=== PATIENT | female | born 1995 | race Caucasian/White ===

== ENCOUNTER 2023-08-31 01:40 | Inpatient (IN) | payer OTHER ==
[2023-08-31 02:54] LABS: PH,URINE 5.5 (5.0-8.0); URINE APPEARANCE CLEAR; URINE BILIRUBIN NEGATIVE (NEGATIVE); URINE COLOR YELLOW; URINE GLUCOSE (UA) NEGATIVE (NEGATIVE); URINE KETONE NEGATIVE (NEGATIVE); URINE LEUK ESTERASE NEGATIVE (NEGATIVE); URINE NITRITE NEGATIVE (NEGATIVE); URINE PROTEIN TRACE (NEGATIVE); URINE UROBILINOGEN 0.2 mg/dL (0.2-1.0)
[2023-08-31 03:08] LABS: HCG,QUALITATIVE URINE Negative
[2023-08-31] MEDS: SODIUM CHLORIDE 0.9% 500 ML INFUS.BAG IV ONE (03:49)
[2023-08-31] MEDS ORDERED: KETOROLAC TROMETHAMINE 15 MG/ML VIAL ONE (03:59)
[2023-08-31] MEDS ORDERED: FAMOTIDINE 20 MG/50 ML IVPB 20 MG/50 ML MG IVPB ONE (03:59)
[2023-08-31] MEDS ORDERED: MAG HYDROX/AL HYDROX/SIMETH 30 ML UNIT-DOSE CUP ONE (03:59)
[2023-08-31 04:01] LABS: BASO % 0.6 % (0-2.0); EOS % 6.6 % (0-4.5); HEMATOCRIT 29.9 % (32.4-45.2); HEMOGLOBIN 9.6 GM/dL (10.7-15.3); LYMPH % 45.9 % (8-40); MCH 25.5 pg (25.7-33.7); MEAN CELL VOLUME 79.8 fl (80-96); MEAN PLT VOLUME 7.5 fl (7.5-11.1); MONO % 6.6 % (3.8-10.2); NEUT % 40.3 % (42.8-82.8); PLATELET COUNT 351 10^3/uL (134-434); RBC 3.75 M/mm3 (3.60-5.2); RDW 14.9 % (11.6-15.6); WHITE BLOOD COUNT 6.7 K/mm3 (4.0-10.0)
[2023-08-31] MEDS: KETOROLAC TROMETHAMINE 15 MG/ML VIAL IVPUSH ONE (04:12)
[2023-08-31] MEDS: FAMOTIDINE 20 MG/50 ML IVPB 20 MG/50 ML MG IVPB ONE (04:13)
[2023-08-31] MEDS: MAG HYDROX/AL HYDROX/SIMETH 30 ML UNIT-DOSE CUP PO ONE (04:13)
[2023-08-31 04:14] LABS: POTASSIUM 4.3 mmol/L (3.5-5.1)
[2023-08-31 04:16] LABS: CALCIUM 9.1 mg/dL (8.5-10.1)
[2023-08-31 04:17] LABS: ALBUMIN 3.2 g/dl (3.4-5.0); BLOOD UREA NITROGEN 19.4 mg/dL (7-18); MAGNESIUM 1.8 mg/dL (1.8-2.4)
[2023-08-31 04:20] LABS: ACTIVATED PTT 39.2 SECONDS (25.2-36.5); CREATININE 0.8 mg/dL (0.55-1.3); INR 1.01 (0.83-1.09); PHOSPHOROUS 4.9 mg/dL (2.5-4.9); PROTHROMBIN TIME (PATIENT) 11.4 SEC (9.7-13.0)
[2023-08-31 04:21] LABS: BILIRUBIN,TOTAL 0.1 mg/dL (0.2-1)
[2023-08-31] MEDS ORDERED: MIDAZOLAM HCL 2 MG/2 ML SINGLE DOSE VIAL ONE (09:49)
[2023-08-31] MEDS ORDERED: FENTANYL CITRATE/PF 50 MCG/ML VIAL ONE (09:50)
[2023-08-31] MEDS: SODIUM CHLORIDE 500 ML IV SCH (10:00)
[2023-08-31] MEDS: FENTANYL CITRATE/PF 50 MCG/ML VIAL IVPUSH ONE ×2 (10:05→10:22)
[2023-08-31] MEDS: MIDAZOLAM HCL 2 MG/2 ML SINGLE DOSE VIAL IVPUSH ONE (10:05)
[2023-08-31] MEDS: SODIUM CHLORIDE 200 ML IV ONE (10:12)
[2023-08-31] MEDS ORDERED: traMADol HCL 50 MG TABLET PO PRN (13:26)
[2023-08-31] MEDS ORDERED: ACETAMINOPHEN 325 MG TABLET (FP) PO PRN (13:26)
[2023-08-31] MEDS ORDERED: VANCOMYCIN 1 GRAM (PRE-DOCKED) 1,000 MG/250 ML BAG IVPB ONE (16:43)
[2023-08-31] MEDS: VANCOMYCIN 1 GRAM (PRE-DOCKED) 1,000 MG/250 ML BAG IVPB ONE (16:43)
[2023-08-31 17:33] VITALS: BMI 32.3
[2023-09-01 03:51] VITALS: TEMP 98.2
[2023-09-01 09:23] LABS: HEMATOCRIT 30.5 % (32.4-45.2); HEMOGLOBIN 9.9 GM/dL (10.7-15.3); MCH 25.7 pg (25.7-33.7); MCHC 32.4 g/dl (32.0-36.0); MEAN CELL VOLUME 79.4 fl (80-96); MEAN PLT VOLUME 7.6 fl (7.5-11.1); PLATELET COUNT 340 10^3/uL (134-434); RBC 3.84 M/mm3 (3.60-5.2); RDW 14.8 % (11.6-15.6); WHITE BLOOD COUNT 4.6 K/mm3 (4.0-10.0)
[2023-09-01 09:40] LABS: CALCIUM 8.4 mg/dL (8.5-10.1)
[2023-09-01 09:41] LABS: BLOOD UREA NITROGEN 10.8 mg/dL (7-18)
[2023-09-01 09:44] LABS: CREATININE 0.5 mg/dL (0.55-1.3)
[2023-09-01 14:12] VITALS: BP 112/68; PULSE 89; RESP 20
[2023-09-01] MEDS ORDERED: VANCOMYCIN/WATER FOR INJ (PEG) 1,000 MG/200 ML BAG IVPB SCH (16:00)
[2023-09-01] MEDS ORDERED: VANCOMYCIN/WATER 1250 MG 1,250 MG/250 ML BAG IVPB SCH (18:15)
== END 2023-09-01 15:53 | disposition home or self-care (01) | DRG 813 ==
LOC: JER 01:40 → JERBED 07:50 → J8W 17:10
PROVIDERS: ADMIT Internal Medicine; ATTEND Internal Medicine
PROC: 0W9F3ZZ Drainage of Abdominal Wall, Percutaneous Approach (ICD-10-PCS; principal; 2023-08-31)
DX: M96.840 Postprocedural hematoma of a musculoskeletal structure following a musculoskeletal system procedure (principal); E66.01 Morbid (severe) obesity due to excess calories; L02.211 Cutaneous abscess of abdominal wall; Z68.32 Body mass index [BMI] 32.0-32.9, adult
CPT/HCPCS: 36415; 49406; 74177-TC; 80048; 80053; 81003; 83605; 83690; 83735; 84100; 84703; 85025; 85027; 85610; 85651; 85730; 86140; 86850; 86900; 86901; 87070; 87075; 87086; 87102; 87186; 87205; 87210; 93005; 93010; 99285-25; Q9967